=== PATIENT | female | born 1970 | race Caucasian/White ===

== ENCOUNTER → 2018-06-15 | Outpatient (CLI) | payer BC ==
[~2018-06-15] MED LIST: CLNZ.5T; CLNZ.5T PO; CLON0.5T3 PO; CTLP20T PO; DESV50TA PO; ESCI20TA2; PREN1TAB39 PO; VENL75CA PO
--- NOTE | 2018-06-15 20:49 | Diagnostic Imaging Report ---
INDICATION: Screening. EXAMINATION: Digital mammogram bilateral screening with 3-D tomosynthesis. The current study was also evaluated with a Computer Aided Detection (CAD) system. This study was compared to the prior exams of 09/30/2015 and 03/20/2013. At this time, there are no current complaints. FINDINGS: The fibroglandular tissue in both breasts is heterogeneously dense. This does limit the sensitivity of this exam. Overall, there does not appear to have been any significant change when compared to the prior study. No primary or secondary sign of malignancy is noted. 3D tomographic images fail to show any sign of malignancy. IMPRESSION: There is no radiographic evidence for malignancy. ACR BI-RADS Category 1: Negative. Result letter will be mailed to the patient. Note: At least 10% of breast cancer is not imaged by mammography. Dictated by: Dictated on workstation # [id number]
== END ==
LOC: RAD 08:02
PROVIDERS: ATTEND Nurse Practitioner
DX: Z12.31 Encounter for screening mammogram for malignant neoplasm of breast (principal)
CPT/HCPCS: 77067

== ENCOUNTER 2019-02-02 19:05 | Emergency (ER) | payer BC ==
[~2019-02-02] VITALS: Ht 165.1 cm; Wt 106.6 kg
--- OUTSIDE RECORDS SUMMARY | 2019-02-02 19:11 | XMS REPORT ---
Author Author Migration, Doctor Organization [facility] Address Unknown Phone Unavailable Care Team Providers Care Automotive Salesperson Name Role Phone Migration, Doctor Unavailable Unavailable PROBLEMS Type Condition ICD9-CM Code KON78-OX Code Onset Dates Condition Status SNOMED Code Problem Hypertension I10 Active 60679695 ALLERGIES No Information ENCOUNTERS Encounter Location Date Diagnosis [facility] [address] [address] Sep, Strep throat J02.0 ; Morbid obesity E66.01 ; Sore throat J02.9 and Fever R50.[address] [facility] [address] [address] Sep, Fluid level behind tympanic membrane of left ear H65.92 and Morbid obesity E66.[address] [facility] [address] [address] November, Acute upper respiratory infection, unspecified J06.[address] [facility] [address] [address] Jul, Pharyngitis due to other organism J02.8 [facility] [address] [id number] Jun, Dental examination Z01.20 [facility] [address] [id number] Jun, Dental examination Z01.20 and Dental caries K02.9 [facility] [address] [address] 17 Apr, 2016 Foot pain, left M79.672 [facility] [address] [address] 14 Apr, 2016 [facility] [address] [place] [address] 15 Mar, 2016 Pain of left heel M79.672 [facility] [id number] [place] [address] 18 Oct, 2015 Palpitation R00.2 ; Esophageal reflux K21.9 ; Hypertension I10 ; Murmur R01.1 and Heart palpitations R00.2 [facility] [address] [address] 04 Oct, 2015 Heart palpitations R00.2 and Hypertension I10 [facility] [address] [address] Feb, Gastroenteritis 558.9 and Allergic reaction caused by a drug 995.29 [facility] [id number] [place] [address] 14 Oct, 2014 [facility] [address] [address] Oct, [facility] [id number] [place] [address] May, [facility] [id number] [place] [address] May, [facility] [id number] [place] [address] Apr, [facility] [id number] [place] [address] Apr, [facility] [id number] [place] [address] Apr, [facility] [id number] [place] [address] Apr, [facility] [id number] [place] [address] Jan, [facility] [id number] [place] [address] Jan, [facility] [place] [facility] [address] [id number] [place] [address] Jan, [facility] [place] [facility] [address] [id number] [place] [address] Jan, [facility] [place] [facility] [address] [id number] [place] [address] Dec, [facility] [place] [facility] [address] [id number] [place] [address] Dec, [facility] [place] [facility] [address] [id number] [place] [address] Sep, [facility] [place] [facility] [address] [id number] [place] [address] Sep, [facility] [place] [facility] [address] [id number] [place] [address] Jul, [facility] [place] [facility] [address] [id number] [place] [address] Jul, [facility] [place] [facility] [address] [id number] [place] [address] Jul, [facility] [place] [facility] [address] [id number] [place] [address] Jul, [facility] [place] [facility] [address] [id number] [place] [address] May, [facility] [place] [facility] [address] [id number] [address] May, [facility] [place] [facility] [address] [id number] [place] [address] Sep, [facility] [place] [facility] [address] [id number] [place] [address] Apr, [facility] [place] [facility] [address] [id number] [place] [address] Feb, [facility] [place] [facility] [address] [id number] [address] Feb, [facility] [address] [id number] [address] Feb, [facility] [address] [address] Aug, [facility] [address] [address] Aug, [facility] [address] [address] Aug, [facility] [address] [address] Jul, [facility] [address] [address] Jul, [facility] [address] [address] Jun, [facility] [address] [address] Jun, [facility] [id number] [address] Jun, [facility] [address] [id number] [address] Jun, IMMUNIZATIONS No Known Immunizations SOCIAL HISTORY Never Assessed REASON FOR VISIT EMR-[facility] PLAN OF CARE VITAL SIGNS MEDICATIONS No Known Medications RESULTS No Results PROCEDURES No Known procedures INSTRUCTIONS MEDICATIONS ADMINISTERED No Known Medications MEDICAL (GENERAL) HISTORY Type Description Date Medical History seasonal allergies Medical History anxiety Medical History hx of depression Surgical History cholecystectomy Surgical History Surgical History right shoulder surgery Surgical History DnC Surgical History wisdom teeth Hospitalization History surgeries
--- OUTSIDE RECORDS SUMMARY | 2019-02-02 19:11 | XMS REPORT ---
Author Author Migration, Doctor Organization [facility] Address Unknown Phone Unavailable Care Team Providers Care Mid Level Game Designer Name Role Phone Migration, Doctor Unavailable Unavailable PROBLEMS Type Condition ICD9-CM Code [id number] Code Onset Dates Condition Status SNOMED Code Problem Hypertension I10 Active 34362372 ALLERGIES No Information ENCOUNTERS Encounter Location Date Diagnosis [facility] [address] [address] Sep, Strep throat J02.0 ; Morbid obesity E66.01 ; Sore throat J02.9 and Fever R50.9 [facility] [address] [address] Sep, Fluid level behind tympanic membrane of left ear H65.92 and Morbid obesity E66.01 [facility] [address] [address] November, Acute upper respiratory infection, unspecified J06.9 [facility] [address] [address] Jul, Pharyngitis due to other organism J02.8 [facility] [address] [id number] Jun, Dental examination Z01.20 [facility] [address] [id number] Jun, Dental examination Z01.20 and Dental caries K02.9 [facility] [address] [address] 17 Apr, 2016 Foot pain, left M79.672 [facility] [address] [address] 14 Apr, 2016 [facility] [address] [place] [address] 15 Mar, 2016 Pain of left heel M79.672 [facility] [id number] [place] [address] 18 Oct, 2015 Palpitation R00.2 ; Esophageal reflux K21.9 ; Hypertension I10 ; Murmur R01.1 and Heart palpitations R00.2 [facility] [address] [address] 04 Oct, 2015 Heart palpitations R00.2 and Hypertension I10 [facility] [address] [address] Feb, Gastroenteritis 558.9 and Allergic reaction caused by a drug 995.29 [facility] [id number] [place] [address] 14 Oct, 2014 [facility] [address] [address] Oct, [facility] [id number] [place] [address] May, [facility] [id number] [place] [address] May, [facility] [id number] [place] [address] Apr, [facility] [id number] [place] [address] Apr, [facility] [id number] [place] [address] Apr, [facility] [id number] [place] [address] Apr, [facility] [id number] [place] [address] Jan, [facility] [id number] [place] [address] Jan, [facility] [place] [facility] [address] [id number] [place] [address] Jan, [facility] [place] [facility] [address] [id number] [place] [address] Jan, [facility] [place] [facility] [address] [id number] [place] [address] Dec, [facility] [place] [facility] [address] [id number] [place] [address] Dec, [facility] [place] [facility] [address] [id number] [place] [address] Sep, [facility] [place] [facility] [address] [id number] [place] [address] Sep, [facility] [place] [facility] [address] [id number] [place] [address] Jul, [facility] [place] [facility] [address] [id number] [place] [address] Jul, [facility] [place] [facility] [address] [id number] [place] [address] Jul, [facility] [place] [facility] [address] [id number] [place] [address] Jul, [facility] [place] [facility] [address] [id number] [place] [address] May, [facility] [place] [facility] [address] [id number] [address] May, [facility] [place] [facility] [address] [id number] [place] [address] Sep, [facility] [place] [facility] [address] [id number] [place] [address] Apr, [facility] [place] [facility] [address] [id number] [place] [address] Feb, [facility] [place] [facility] [address] [id number] [address] Feb, [facility] [address] [id number] [address] Feb, [facility] [address] [address] Aug, [facility] [address] [id number] [address] Aug, [facility] [address] [address] Aug, [facility] [address] [address] Jul, [facility] [address] [address] Jul, [facility] [address] [address] Jun, [facility] [address] [id number] [address] Jun, [facility] [address] [id number] [address] Jun, [facility] [address] [id number] [address] Jun, IMMUNIZATIONS No Known Immunizations SOCIAL HISTORY Never Assessed REASON FOR VISIT [place] [place] VITAL SIGNS MEDICATIONS Medication Instructions Dosage Frequency Start Date End Date Duration Status PredniSONE 10 mg 1 Tablet by Oral route 2 times per day for 5 days Take at 8 am and noon. Sep, Active Fluoxetine 20 mg take 1 capsule (20 mg) by oral route once daily Dec, Active Klonopin 0.5 mg take 1 tablet (0.5 mg) by oral route 2 times per dayPRN Feb, Active Vistaril 50 mg take 1-2 capsule by Oral route 4 times per day Jan, Active Amoxicillin 500 mg take 1 capsule (500 mg) by oral route 3 times per day for 30 days for 10 days Jul, Active PredniSONE 20 mg take 1 tablet (20 mg) by oral route 2 times per day for 5 day(s) Feb, Active [facility]ita Allergy 180 mg take 1 tablet (180 mg) by oral route once daily Sep, Active Azithromycin 250 mg 2 Tablet by Oral route 1 time per day for 6 days take with food. Sep, Active RESULTS No Results PROCEDURES No Known procedures INSTRUCTIONS MEDICATIONS ADMINISTERED No Known Medications MEDICAL (GENERAL) HISTORY Type Description Date Medical History seasonal allergies Medical History anxiety Medical History hx of depression Surgical History cholecystectomy Surgical History Surgical History right shoulder surgery Surgical History DnC Surgical History wisdom teeth Hospitalization History surgeries
--- OUTSIDE RECORDS SUMMARY | 2019-02-02 19:11 | XMS REPORT ---
Author Author ANTHONY BECK [facility] Address Unknown Care Team Providers Care Process Control Manager Name Role Phone ANTHONY BECK Unavailable PROBLEMS Type Condition ICD9-CM Code SHN58-NN Code Onset Dates Condition Status SNOMED Code Problem Fever, unspecified 780.60 Active 791408020 Problem Enthesopathy of unspecified site 726.90 Active 94972719 Problem Unspecified hypertrophic and atrophic condition of skin 701.9 Active 513456021 Problem Family history of ischemic heart disease V17.3 Active 622576152 Problem Elevated blood pressure reading without diagnosis of hypertension 796.2 Active 704370525 Problem Urinary frequency 788.41 Active 665953492 Problem Hypertension I10 Active 69048109 Problem Viral warts, unspecified 078.10 Active 93866661 Problem Acute upper respiratory infections of unspecified site 465.9 Active 50090348 Problem Influenza with other respiratory manifestations 487.1 Active 0732981 Problem Acute sinusitis, unspecified 461.9 Active 86606258 Problem Acute pharyngitis 462 Active 032135962 ALLERGIES Substance Reaction Event Type Date Status N.K.D.A. Unknown Non Drug Allergy Jun, Unknown SOCIAL HISTORY No smoking Hx information available PLAN OF CARE Activity Details Follow Up prn Reason:cap VITAL SIGNS Height 65 in 2016-07-21 Blood pressure systolic 150 mmHg 2016-07-21 Blood pressure diastolic 90 mmHg 2016-07-21 MEDICATIONS Medication Instructions Dosage Frequency Start Date End Date Duration Status Klonopin 0.5 mg take 1 tablet (0.5 mg) by oral route 2 times per dayPRN Feb, Active Diclofenac Sodium 75 MG Orally Twice a day 1 tablet with food or milk 12h Apr, 14 Aug, 2016 30 day(s) Active Effexor XR 112.5 Orally Once a day 1 capsule with food 24h Active RESULTS No Results PROCEDURES Procedure Date Ordered Related Diagnosis Body Site LTD ORAL EVALUATION - PROBLEM FOCUS Jul 21, 2016 IMMUNIZATIONS No Known Immunizations
--- OUTSIDE RECORDS SUMMARY | 2019-02-02 19:11 | XMS REPORT ---
Author Author SUREKHA BOX Organization [facility] Address [address] [place] [address] Care Team Providers Care Die Cut Operator Name Role Phone SUREKHA BOX Unavailable PROBLEMS Type Condition ICD9-CM Code KLP34-SW Code Onset Dates Condition Status SNOMED Code Problem Fever, unspecified 780.60 Active 853216548 Problem Enthesopathy of unspecified site 726.90 Active 98479361 Problem Unspecified hypertrophic and atrophic condition of skin 701.9 Active 090256464 Problem Family history of ischemic heart disease V17.3 Active 487588889 Problem Elevated blood pressure reading without diagnosis of hypertension 796.2 Active 749786507 Problem Urinary frequency 788.41 Active 380682605 Problem Hypertension I10 Active 94968088 Problem Viral warts, unspecified 078.10 Active 47758357 Problem Acute upper respiratory infections of unspecified site 465.9 Active 21487550 Problem Influenza with other respiratory manifestations 487.1 Active 0106322 Problem Acute sinusitis, unspecified 461.9 Active 71794177 Problem Acute pharyngitis 462 Active 168530309 ALLERGIES Substance Reaction Event Type Date Status N.K.D.A. Unknown Non Drug Allergy Jul, Unknown SOCIAL HISTORY No smoking Hx information available PLAN OF CARE VITAL SIGNS Height 65 in 2016-08-05 Weight 293.4 lbs 2016-08-05 Temperature 97.7 degrees Fahrenheit 2016-08-05 Heart Rate 88 bpm 2016-08-05 Respiratory Rate 20 2016-08-05 BMI 48.82 kg/m2 2016-08-05 Blood pressure systolic 170 mmHg 2016-08-05 Blood pressure diastolic 92 mmHg 2016-08-05 MEDICATIONS Medication Instructions Dosage Frequency Start Date End Date Duration Status Amoxicillin 500 MG Orally 3 times a day 1 capsule 8h Jul, Jul, 10 day(s) Active Klonopin 0.5 mg take 1 tablet (0.5 mg) by oral route 2 times per dayPRN Feb, Active Effexor XR 112.5 Orally Once a day 1 capsule with food 24h Active RESULTS No Results PROCEDURES Procedure Date Ordered Related Diagnosis Body Site Office Visit, Est Pt., Level 3 Aug 05, 2016 IMMUNIZATIONS No Known Immunizations
--- OUTSIDE RECORDS SUMMARY | 2019-02-02 19:11 | XMS REPORT ---
Author Author SUREKHA BOX Organization [facility] Address [address] [place] [address] Care Team Providers Care Center Director Lead Teacher Name Role Phone SUREKHA BOX Unavailable PROBLEMS Type Condition ICD9-CM Code XWA78-WG Code Onset Dates Condition Status SNOMED Code Problem Hypertension I10 Active 41728572 ALLERGIES No Information ENCOUNTERS Encounter Location Date Diagnosis [facility] [address] [address] 14 Sep, 2018 Strep throat J02.0 ; Morbid obesity E66.01 ; Sore throat J02.9 and Fever R50.9 [facility] [address] [address] Sep, Fluid level behind tympanic membrane of left ear H65.92 and Morbid obesity E66.01 [facility] [address] [address] November, Acute upper respiratory infection, unspecified J06.9 [facility] [address] [place] [address] Jul, Pharyngitis due to other organism J02.8 [facility] [id number] [place] [id number] Jun, Dental examination Z01.20 [facility] [id number] [place] [id number] Jun, Dental examination Z01.20 and Dental caries K02.9 [facility] [address] [address] 17 Apr, 2016 Foot pain, left M79.672 [facility] [address] [address] 14 Apr, 2016 [facility] [address] [place] [address] 15 Mar, 2016 Pain of left heel M79.672 [facility] [id number] [place] [address] 18 Oct, 2015 Palpitation R00.2 ; Esophageal reflux K21.9 ; Hypertension I10 ; Murmur R01.1 and Heart palpitations R00.2 [facility] [id number] [place] [address] 04 Oct, 2015 Heart palpitations R00.2 and Hypertension I10 [facility] [address] [address] Feb, Gastroenteritis 558.9 and Allergic reaction caused by a drug 995.29 [facility] [id number] [place] [address] Oct, [facility] [id number] [place] [address] Oct, [facility] [id number] [place] [address] May, [facility] [id number] [place] [address] May, [facility] [id number] [place] [address] Apr, [facility] [id number] [place] [address] Apr, [facility] [id number] [place] [address] Apr, [facility] [id number] [place] [address] Apr, [facility] [id number] [place] [address] Jan, [facility] [id number] [place] [address] Jan, [facility] [address] [id number] [place] [address] Jan, [facility] [place] [facility] [address] [id number] [place] [address] Jan, [facility] [address] [id number] [place] [address] Dec, [facility] [place] [facility] [address] [id number] [place] [address] Dec, [facility] [address] [id number] [place] [address] Sep, [facility] [place] [facility] [address] [id number] [place] [address] Sep, [facility] [place] [facility] [address] [id number] [place] [address] Jul, [facility] [address] [id number] [place] [address] Jul, [facility] [place] [facility] [address] [id number] [place] [address] Jul, [facility] [address] [id number] [place] [address] Jul, [facility] [place] [facility] [address] [id number] [place] [address] May, [facility] [place] [facility] [address] [id number] [place] [address] May, [facility] [place] [facility] [address] [id number] [place] [address] Sep, [facility] [place] [facility] [address] [id number] [place] [address] Apr, [facility] [place] [facility] [address] [id number] [place] [address] Feb, [facility] [address] [address] Feb, [facility] [address], [place] [address] Feb, [facility] [address], [place] [address] Aug, [facility] [address], [place] [address] Aug, [facility] [address], [place] [address] Aug, [facility] [address] [place] [address] Jul, [facility] [address], [place] [address] Jul, [facility] [address], [place] [address] Jun, [facility] [address], [place] [address] Jun, [facility] [address], [place] [address] Jun, [facility] [address], [place] [address] Jun, IMMUNIZATIONS No Known Immunizations SOCIAL HISTORY Never Assessed REASON FOR VISIT PLAN OF CARE VITAL SIGNS MEDICATIONS No [...]
--- OUTSIDE RECORDS SUMMARY | 2019-02-02 19:11 | XMS REPORT ---
Author SUREKHA Ham Organization [employer] Address Unknown Phone Unavailable Care Team Providers Care Web Content Editor Name Role Phone SUREKHA BOX CP Unavailable Allergies, Adverse Reactions, Alerts Substance Reaction Event Type N.K.D.A. Info Not Available Non Drug Allergy Problems Problem Type Condition Code Onset Dates Condition Status Problem Viral warts, unspecified 078.10 Active Problem Elevated blood pressure reading without diagnosis of hypertension 796.2 Active Problem Acute upper respiratory infections of unspecified site 465.9 Active Problem Acute sinusitis, unspecified 461.9 Active Problem Unspecified hypertrophic and atrophic condition of skin 701.9 Active Problem Enthesopathy of unspecified site 726.90 Active Problem Acute pharyngitis 462 Active Problem Hypertension I10 Active Problem Influenza with other respiratory manifestations 487.1 Active Problem Fever, unspecified 780.60 Active Problem Family history of ischemic heart disease V17.3 Active Problem Urinary frequency 788.41 Active Medications Medication Code System Code Instructions Start Date End Date Status Dosage Effexor XR [facility] [address]-25 112.5 Orally Once a day 1 capsule with food Klonopin [facility] [address]-45 0.5 mg Mar 11, 2012 take 1 tablet (0.5 mg) by oral route 2 times per dayPRN Results No Known Results Summary Purpose [employer] Submission
--- OUTSIDE RECORDS SUMMARY | 2019-02-02 19:11 | XMS REPORT ---
Author Author MIRZAJOSSUE Gutierrez Organization [facility] Address [address] [place] [address] Care Team Providers Care Ap Processor Name Role Phone JOSSUE MIRZA Unavailable PROBLEMS Type Condition ICD9-CM Code [id number] Code Onset Dates Condition Status SNOMED Code Problem Acute upper respiratory infections of unspecified site 465.9 Active 89055162 Problem Fever, unspecified 780.60 Active 913100157 Problem Elevated blood pressure reading without diagnosis of hypertension 796.2 Active 496583705 Assessment Pain of left heel M79.672 Mar, Active 1192398 Problem Acute sinusitis, unspecified 461.9 Active 77280328 Problem Unspecified hypertrophic and atrophic condition of skin 701.9 Active 085567167 Problem Viral warts, unspecified 078.10 Active 72134507 Problem Hypertension I10 Active 13745086 Problem Enthesopathy of unspecified site 726.90 Active 00043872 Problem Urinary frequency 788.41 Active 978003702 Problem Influenza with other respiratory manifestations 487.1 Active 0958154 Problem Acute pharyngitis 462 Active 432231375 Problem Family history of ischemic heart disease V17.3 Active 059466648 ALLERGIES Substance Reaction Event Type Date Status N.K.D.A. Unknown Non Drug Allergy Mar, Unknown SOCIAL HISTORY No smoking Hx information available PLAN OF CARE VITAL SIGNS Height 65 in 2016-04-09 Weight 302.1 lbs 2016-04-09 Heart Rate 90 bpm 2016-04-09 Respiratory Rate 20 2016-04-09 BMI 50.27 kg/m2 2016-04-09 Blood pressure systolic 154 mmHg 2016-04-09 Blood pressure diastolic 84 mmHg 2016-04-09 MEDICATIONS Medication Instructions Dosage Frequency Start Date End Date Duration Status Effexor XR 112.5 Orally Once a day 1 capsule with food 24h Active Flonase Allergy Relief 50 MCG/ACT Nasally Once a day 1 spray in each nostril 24h Active Klonopin 0.5 mg take 1 tablet (0.5 mg) by oral route 2 times per dayPRN Feb, Active RESULTS Name Result Date Reference Range Xray : Foot, Left 3 views (IN HOUSE) 2016-04-09 PROCEDURES Procedure Date Ordered Related Diagnosis Body Site X-RAY EXAM OF FOOT Apr 09, 2016 Office Visit, Est Pt., Level 3 Apr 09, 2016 IMMUNIZATIONS No Known Immunizations
--- OUTSIDE RECORDS SUMMARY | 2019-02-02 19:11 | XMS REPORT ---
Author Author ALENA HAMM Organization [facility] Address [address] [place] [address] Care Team Providers Care Ragman Name Role Phone ALENA HAMM Unavailable PROBLEMS Type Condition ICD9-CM Code [id number] Code Onset Dates Condition Status SNOMED Code Problem Fever, unspecified 780.60 Active 327950491 Problem Enthesopathy of unspecified site 726.90 Active 28158324 Problem Unspecified hypertrophic and atrophic condition of skin 701.9 Active 762059376 Problem Family history of ischemic heart disease V17.3 Active 599635965 Problem Elevated blood pressure reading without diagnosis of hypertension 796.2 Active 155237952 Problem Urinary frequency 788.41 Active 129090777 Problem Hypertension I10 Active 61438978 Problem Viral warts, unspecified 078.10 Active 72596661 Problem Acute upper respiratory infections of unspecified site 465.9 Active 54355002 Problem Influenza with other respiratory manifestations 487.1 Active 2420052 Problem Acute sinusitis, unspecified 461.9 Active 51588285 Problem Acute pharyngitis 462 Active 494097694 ALLERGIES No Known Allergies SOCIAL HISTORY Never Assessed PLAN OF CARE Activity Details Follow Up prn Reason: VITAL SIGNS Height 65 in 2016-12-13 Weight 294.6 lbs 2016-12-13 Temperature 98.4 degrees Fahrenheit 2016-12-13 Heart Rate 84 bpm 2016-12-13 Respiratory Rate 22 2016-12-13 BMI 49.02 kg/m2 2016-12-13 Blood pressure systolic 160 mmHg 2016-12-13 Blood pressure diastolic 88 mmHg 2016-12-13 MEDICATIONS Medication Instructions Dosage Frequency Start Date End Date Duration Status Azithromycin 250 MG Orally Once a day 2 tablets on the first day, then 1 tablet daily for 4 days 24h November, November, 5 day(s) Active Klonopin 0.5 mg take 1 tablet (0.5 mg) by oral route 2 times per dayPRN Feb, Active Effexor XR 112.5 Orally Once a day 1 capsule with food 24h Active RESULTS No Results PROCEDURES No Known procedures IMMUNIZATIONS No Known Immunizations MEDICAL (GENERAL) HISTORY Type Description Date Medical History seasonal allergies Medical History anxiety Medical History hx of depression Surgical History cholecystectomy Surgical History Surgical History right shoulder surgery Surgical History DnC Surgical History wisdom teeth Hospitalization History surgeries
--- OUTSIDE RECORDS SUMMARY | 2019-02-02 19:12 | XMS REPORT ---
Author SUREKHA Ham [facility] e[employer] Address Unknown Phone Unavailable Care Team Providers Care Flour Inspector Name Role Phone SUREKHA BOX CP Unavailable Allergies, Adverse Reactions, Alerts Substance Reaction Event Type N.K.D.A. Info Not Available Non Drug Allergy Problems Problem Type Condition Code Onset Dates Condition Status Problem Viral warts, unspecified 078.10 Active Problem Elevated blood pressure reading without diagnosis of hypertension 796.2 Active Problem Acute upper respiratory infections of unspecified site 465.9 Active Problem Enthesopathy of unspecified site 726.90 Active Problem Acute pharyngitis 462 Active Problem Hypertension I10 Active Problem Influenza with other respiratory manifestations 487.1 Active Problem Fever, unspecified 780.60 Active Problem Family history of ischemic heart disease V17.3 Active Problem Urinary frequency 788.41 Active Assessment Heart palpitations R00.2 Active Assessment Esophageal reflux K21.9 Active Assessment Palpitation R00.2 Active Assessment Murmur R01.1 Active Problem Acute sinusitis, unspecified 461.9 Active Assessment Hypertension I10 Active Problem Unspecified hypertrophic and atrophic condition of skin 701.9 Active Medications Medication Code System Code Instructions Start Date End Date Status Dosage Flonase Allergy Relief [facility] [address]-46 50 MCG/ACT Nasally Once a day 1 spray in each nostril Omeprazole [facility] [address]-18 20 mg Orally Once a day November 11, 2015 1 capsule Effexor XR [facility] [address]-21 75 MG Orally Once a day 1 capsule with food Klonopin [facility] [address]-35 0.5 mg Mar 11, 2012 take 1 tablet (0.5 mg) by oral route 2 times per dayPRN Procedures Procedure Coding System Code Date ASSAY THYROID STIM HORMONE CPT-4 10434 November 11, 2015 COMPLETE CBC W/AUTO DIFF WBC CPT-4 68902 November 11, 2015 Office Visit, Est Pt., Level 3 CPT-4 46786 November 11, 2015 ELECTROCARDIOGRAM, TRACING CPT-4 68442 November 11, 2015 LIPID PANEL CPT-4 80615 November 11, 2015 C-REACTIVE PROTEIN, HS CPT-4 70935 November 11, 2015 CHEST X-RAY CPT-4 46033 November 11, 2015 COMPREHEN METABOLIC PANEL CPT-4 44771 November 11, 2015 Vital Signs Date/Time: November 11, 2015 Temperature 98.1 F Weight 296.3 lbs Height 65 in BMI 49.30 Index Blood Pressure Diastolic 88 mmHg Blood Pressure Systolic 168 mmHg Cardiac Monitoring Heart Rate 90 bpm Results Name Result Date Reference Range Unit Abnormality Flag TSH ----TSH 2.430 [id number] 0.450-4.500 uIU/mL CRP, CARDIAC ----C-Reactive Protein, Cardiac 9.72 [id number] 0.00-3.00 mg/L H ROUTINE VENIPUNCTURE EKG, TRACING (IN-HOUSE) LIPID PANEL ----LDL Cholesterol Calc 84 [id number] 0-99 mg/dL ----VLDL Cholesterol Charles 23 16957770 5-40 mg/dL ----HDL Cholesterol 56 19125878 >39 mg/dL ----Triglycerides 117 70386897 0-149 mg/dL ----Cholesterol, Total 163 [id number] 100-199 mg/dL CMP ----Creatinine, Serum 0.56 [id number] 0.57-1.00 mg/dL L ----BUN 9 59891168 6-24 mg/dL ----eGFR If Africn Am 130 [id number] >59 mL/min/1.73 ----eGFR If NonAfricn Am 113 [id number] >59 mL/min/1.73 ----Sodium, Serum 140 23958307 134-144 mmol/L ----BUN/Creatinine Ratio 16 [id number] 9-23 ----Chloride, Serum 100 96298196 97-108 mmol/L ----Potassium, Serum 4.1 59638129 3.5-5.2 mmol/L ----Carbon Dioxide, Total 22 58595457 18-29 mmol/L ----Protein, Total, Serum 7.1 58242202 6.0-8.5 g/dL ----Calcium, Serum 9.1 61916975 8.7-10.2 mg/dL ----Globulin, Total 2.7 [id number] 1.5-4.5 g/dL ----Albumin, Serum 4.4 20151111 3.5-5.5 g/dL ----Bilirubin, Total 0.5 20151111 0.0-1.2 mg/dL ----Glucose, Serum 92 20151111 65-99 mg/dL ----A/G Ratio 1.6 20151111 1.1-2.5 ----ALT (SGPT) 15 20151111 0-32 IU/L ----Alkaline Phosphatase, S 87 20151111 39-117 IU/L ----AST (SGOT) 10 20151111 0-40 IU/L Summary Purpose eClinicalWorks Submission
--- OUTSIDE RECORDS SUMMARY | 2019-02-02 19:12 | XMS REPORT ---
Author SUREKHA Ham Organization [employer] Address Unknown Phone Unavailable Care Team Providers Care Crane Rigger Name Role Phone SUREKHA BOX CP Unavailable [...] Active Problem Urinary frequency 788.41 Active Assessment Foot pain, left M79.672 Active Problem Acute sinusitis, unspecified 461.9 Active Problem Unspecified hypertrophic and atrophic condition of skin 701.9 Active Medications Medication Code System Code Instructions Start Date End Date Status Dosage Effexor XR [facility] [address]-06 112.5 Orally Once a day 1 capsule with food Klonopin [facility] [address]-62 0.5 mg Mar 11, 2012 take 1 tablet (0.5 mg) by oral route 2 times per dayPRN Diclofenac Sodium [facility] [address]-42 75 MG Orally Twice a day May 11, 2016 Sep 08, 2016 1 tablet with food or milk Procedures Procedure Coding System Code Date Office Visit, Est Pt., Level 3 CPT-4 26361 May 11, 2016 Vital Signs Date/Time: May 11, 2016 Cardiac Monitoring Heart Rate 82 bpm Weight 301.9 lbs Height 65 in BMI 50.23 Index Blood Pressure Diastolic 76 mmHg Blood Pressure Systolic 138 mmHg Results No Known Results Summary Purpose [employer]ClinicalWorks Submission
--- OUTSIDE RECORDS SUMMARY | 2019-02-02 19:12 | XMS REPORT ---
Author Author ANTHONY BECK [facility] Address Unknown Care Team Providers Care Child Development Consultant Name Role Phone ANTHONY BECK Unavailable PROBLEMS Type Condition ICD9-CM Code [id number] Code Onset Dates Condition Status SNOMED Code Problem Fever, unspecified 780.60 Active 439996422 Problem Enthesopathy of unspecified site 726.90 Active 58943329 Problem Unspecified hypertrophic and atrophic condition of skin 701.9 Active 412643567 Problem Family history of ischemic heart disease V17.3 Active 246793618 Problem Elevated blood pressure reading without diagnosis of hypertension 796.2 Active 771348980 Problem Urinary frequency 788.41 Active 423791175 Problem Hypertension I10 Active 02166190 Problem Viral warts, unspecified 078.10 Active 96516218 Problem Acute upper respiratory infections of unspecified site 465.9 Active 78794492 Problem Influenza with other respiratory manifestations 487.1 Active 3572123 Problem Acute sinusitis, unspecified 461.9 Active 88286187 Problem Acute pharyngitis 462 Active 001631566 ALLERGIES Substance Reaction Event Type Date Status N.K.D.A. Unknown Non Drug Allergy Jun, Unknown SOCIAL HISTORY No smoking Hx information available PLAN OF CARE Activity Details Follow Up prn Reason:hygiene VITAL SIGNS Blood pressure systolic 139 mmHg 2016-07-16 Blood pressure diastolic 83 mmHg 2016-07-16 MEDICATIONS Medication Instructions Dosage Frequency Start Date End Date Duration Status Effexor XR 112.5 Orally Once a day 1 capsule with food 24h Active Klonopin 0.5 mg take 1 tablet (0.5 mg) by oral route 2 times per dayPRN Feb, Active Diclofenac Sodium 75 MG Orally Twice a day 1 tablet with food or milk 12h Apr, Aug, 30 day(s) Active RESULTS No Results PROCEDURES Procedure Date Ordered Related Diagnosis Body Site LTD ORAL EVALUATION - PROBLEM FOCUS Jul 16, 2016 INTRAORL-PERIAPICAL 1 FILM 66502 Jul 16, 2016 EXTRAC ERUPTED TOOTH/EXPOSED ROOT Jul 16, 2016 BITEWING - SINGLE FILM Jul 16, 2016 IMMUNIZATIONS No Known Immunizations
--- OUTSIDE RECORDS SUMMARY | 2019-02-02 19:12 | XMS REPORT | Continuity of Care Document ---
Author Organization Unknown Address Unknown Allergies Active Description Code Type Severity Reaction Onset Reported/Identified Relationship to Patient Clinical Status Yes NKANo Known Allergies NKA Miscellaneous Allergy Unknown N/A 06/22/2006 Yes No Known Drug Allergies [id number] Drug Allergy Mild N/A 11/27/2008 Medications There is no data. Problems Date Dx Coded Attending Type Code Diagnosis Diagnosed By 07/20/2008 463 TONSILLITIS ACUTE 07/20/2008 RYLEY HAYES APRN A 463 TONSILLITIS ACUTE 07/20/2008 DOMINIQUE OSBORN APRN 463 TONSILLITIS ACUTE 07/20/2008 RYLEY HAYES APRN A 463 TONSILLITIS ACUTE 07/20/2008 EMMA ASH APRN 463 TONSILLITIS ACUTE 07/20/2008 SUREKHA BOX APRN 463 TONSILLITIS ACUTE 07/20/2008 CATY MARQUEZ DO 463 TONSILLITIS ACUTE 11/19/2008 625.3 DYSMENORRHEA 11/19/2008 RYLEY HAYES APRN A 625.3 DYSMENORRHEA 11/19/2008 DOMINIQUE OSBORN APRN 625.3 DYSMENORRHEA 11/19/2008 RYLEY HAYES APRN A 625.3 DYSMENORRHEA 11/19/2008 EMMA ASH APRN 625.3 DYSMENORRHEA 11/19/2008 SUREKHA BOX APRN 625.3 DYSMENORRHEA 11/19/2008 CATY MARQUEZ DO 625.3 DYSMENORRHEA 07/11/2009 V65.11 pediatric pre- visit for expectant mother 07/11/2009 RYLEY HAYES APRN A V65.11 pediatric pre- visit for expectant mother 07/11/2009 DOMINIQUE OSBORN APRN V65.11 pediatric pre- visit for expectant mother 07/11/2009 RYLEY HAYES APRN A V65.11 pediatric pre- visit for expectant mother 07/11/2009 EMMA ASH APRN V65.11 pediatric pre- visit for expectant mother 07/11/2009 SUREKHA BOX APRN V65.11 pediatric pre- visit for expectant mother 07/11/2009 CATY MARQUEZ DO V65.11 pediatric pre- visit for expectant mother 12/11/2009 300.00 AN ANXIETY UNSPEC 12/11/2009 311 MO DEPRESS NOS 12/11/2009 SHREYA HAYES APRNIDI A 300.00 AN ANXIETY UNSPEC 12/11/2009 SHREYA HAYES APRNIDI A 311 MO DEPRESS NOS 12/11/2009 DOMINIQUE OSBORN APRN S 300.00 AN ANXIETY UNSPEC 12/11/2009 DOMINIQUE OSBORN APRN S 311 MO DEPRESS NOS 12/11/2009 RYLEY HAYES APRN A 300.00 AN ANXIETY UNSPEC 12/11/2009 RYLEY HAYES APRN A 311 MO DEPRESS NOS 12/11/2009 EMMA ASH APRN R 300.00 AN ANXIETY UNSPEC 12/11/2009 EMMA ASH APRN R 311 MO DEPRESS NOS 12/11/2009 SUREKHA BOX APRN 300.00 AN ANXIETY UNSPEC 12/11/2009 SUREKHA BOX APRN 311 MO DEPRESS NOS 12/11/2009 CATY MARQUEZ DO 300.00 AN ANXIETY UNSPEC 12/11/2009 CATY MARQUEZ DO 311 MO DEPRESS NOS 03/15/2010 719.47 PAIN IN JOINT INVOLVING ANKLE AND FOOT 03/15/2010 845.10 SPRAIN/STRAIN FOOT 03/15/2010 RYLEY HAYES APRN A 719.47 PAIN IN JOINT INVOLVING ANKLE AND FOOT 03/15/2010 RYLEY HAYES APRN A 845.10 SPRAIN/STRAIN FOOT 03/15/2010 DOMINIQUE OSBORN APRN S 719.47 PAIN IN JOINT INVOLVING ANKLE AND FOOT 03/15/2010 DOMINIQUE OSBORN APRN S 845.10 SPRAIN/STRAIN FOOT 03/15/2010 RYLEY HAYES APRN A 719.47 PAIN IN JOINT INVOLVING ANKLE AND FOOT 03/15/2010 RYLEY HAYES APRN A 845.10 SPRAIN/STRAIN FOOT 03/15/2010 EMMA ASH APRN R 719.47 PAIN IN JOINT INVOLVING ANKLE AND FOOT 03/15/2010 EMMA ASH APRN R 845.10 SPRAIN/STRAIN FOOT 03/15/2010 SUREKHA BOX APRN 719.47 PAIN IN JOINT INVOLVING ANKLE AND FOOT 03/15/2010 SUREKHA BOX APRN 845.10 SPRAIN/STRAIN FOOT 03/15/2010 CATY MARQUEZ DO 719.47 PAIN IN JOINT INVOLVING ANKLE AND FOOT 03/15/2010 CATY MARQUEZ DO 845.10 SPRAIN/STRAIN FOOT 04/24/2010 462 PHARYNGITIS ACUTE 04/24/2010 785.6 LYMPH NODES ENLARGEMENT 04/24/2010 SHREYA HAYES APRNIDI A 462 PHARYNGITIS ACUTE 04/24/2010 SHREYA HAYES APRNIDI A 785.6 LYMPH NODES ENLARGEMENT 04/24/2010 DOMINIQUE OSBORN APRN S 462 PHARYNGITIS ACUTE 04/24/2010 DOMINIQUE OSBORN APRN S 785.6 LYMPH NODES ENLARGEMENT 04/24/2010 SHREYA HAYES APRNIDI A 462 PHARYNGITIS ACUTE 04/24/2010 SHREYA HAYES APRNIDI A 785.6 LYMPH NODES ENLARGEMENT 04/24/2010 EMMA ASH APRN R 462 PHARYNGITIS ACUTE 04/24/2010 EMMA ASH APRN R 785.6 LYMPH NODES ENLARGEMENT 04/24/2010 SUREKHA BOX APRN 462 PHARYNGITIS ACUTE 04/24/2010 SUREKHA BOX APRN 785.6 LYMPH NODES ENLARGEMENT 04/24/2010 CATY MARQUEZ DO K 462 PHARYNGITIS ACUTE 04/24/2010 CATY MARQUEZ DO 785.6 LYMPH NODES ENLARGEMENT 08/07/2010 Ot 640.03 03/27/2011 Ot 300.01 03/31/2011 799.22 Irritibility 03/31/2011 RYLEY HAYES APRN A 799.22 Irritibility 03/31/2011 YO OSBORN APRNA S 799.22 Irritibility 03/31/2011 RYLEY HAYES APRN A 799.22 Irritibility 03/31/2011 EMMA ASH APRN R 799.22 Irritibility 03/31/2011 SUREKHA BOX APRN 799.22 Irritibility 03/31/2011 CATY MARQUEZ DO 799.22 Irritibility 07/21/2011 599.0 URINARY TRACT INFECTION 07/21/2011 ABIGAILPARVEZ STEWART, RYLEY A 599.0 URINARY TRACT INFECTION 07/21/2011 DOMINIQUE OSBORN APRN S 599.0 URINARY TRACT INFECTION 07/21/2011 ABIGAILRYLEY HANNON APRN A 599.0 URINARY TRACT INFECTION 07/21/2011 EMMA ASH APRN R 599.0 URINARY TRACT INFECTION 07/21/2011 SUREKHA BOX APRN 599.0 URINARY TRACT INFECTION 07/21/2011 CATY MARQUEZ DO 599.0 URINARY TRACT INFECTION 08/10/2011 465.9 Upper Respiratory Infection 08/10/2011 RYLEY HAYES APRN A 465.9 Upper Respiratory Infection 08/10/2011 DOMINIQUE OSBORN APRN S 465.9 Upper Respiratory Infection 08/10/2011 RYLEY HAYES APRN A 465.9 Upper Respiratory Infection 08/10/2011 EMMA AHS APRN R 465.9 Upper Respiratory Infection 08/10/2011 SUREKHA BOX APRN 465.9 Upper Respiratory Infection 08/10/2011 CATY MARQUEZ DO K 465.9 Upper Respiratory Infection 08/26/2011 462 Pharyngitis Acute 08/26/2011 RYLEY HAYES APRN A 462 Pharyngitis Acute 08/26/2011 DOMINIQUE OSBORN APRN S 462 Pharyngitis Acute 08/26/2011 SHREYA HAYES APRNIDI A 462 Pharyngitis Acute 08/26/2011 EMMA ASH APRN R 462 Pharyngitis Acute 08/26/2011 SUREKHA BOX APRN 462 Pharyngitis Acute 08/26/2011 CATY MARQUEZ DO 462 Pharyngitis Acute 08/31/2011 V17.3 FAMILY HISTORY OF ISCHEMIC HEART DISEASE 08/31/2011 RYLEY HAYES APRN A V17.3 FAMILY HISTORY OF ISCHEMIC HEART DISEASE 08/31/2011 DOMINIQUE OSBORN APRN S V17.3 FAMILY HISTORY OF ISCHEMIC HEART DISEASE 08/31/2011 RYLEY HAYES APRN A V17.3 FAMILY HISTORY OF ISCHEMIC HEART DISEASE 08/31/2011 EMMA ASH APRN R V17.3 FAMILY HISTORY OF ISCHEMIC HEART DISEASE 08/31/2011 SUREKHA BOX APRN V17.3 FAMILY HISTORY OF ISCHEMIC HEART DISEASE 08/31/2011 CATY MARQUEZ DO V17.3 FAMILY HISTORY OF ISCHEMIC HEART DISEASE 02/24/2012 726.90 Tendonitis Non- spec 02/24/2012 RYLEY HAYES APRN A 726.90 Tendonitis Non-spec 02/24/2012 DOMINIQUE OSBORN APRN S 726.90 Tendonitis Non-spec 02/24/2012 RYLEY HAYES APRN A 726.90 Tendonitis Non-spec 02/24/2012 EMMA ASH APRN R 726.90 Tendonitis Non-spec 02/24/2012 SUREKHA BOX APRN 726.90 Tendonitis Non-spec 02/24/2012 CATY MARQUEZ DO K 726.90 Tendonitis Non-spec 03/11/2012 078.10 Warts 03/11/2012 701.9 Skin Tag 03/11/2012 RYLEY HAYES APRN A 078.10 Warts 03/11/2012 RYLEY HAYES APRN A 701.9 Skin Tag 03/11/2012 YO OSBORN APRNA S 078.10 Warts 03/11/2012 YO OSBORN APRNA S 701.9 Skin Tag 03/11/2012 RYLEY HAYES APRN A 078.10 Warts 03/11/2012 RYLEY HAYES APRN A 701.9 Skin Tag 03/11/2012 EMMA ASH APRN R 078.10 Warts 03/11/2012 EMMA ASH APRN R 701.9 Skin Tag 03/11/2012 SUREKHA BOX APRN 078.10 Warts 03/11/2012 SUREKHA BOX APRN 701.9 Skin Tag 03/11/2012 CATY MARQUEZ DO K 078.10 Warts 03/11/2012 CATY MARQUEZ DO K 701.9 Skin Tag 10/12/2012 461.9 SINUSITIS ACUTE 10/12/2012 RYLEY HAYES APRN A 461.9 SINUSITIS ACUTE 10/12/2012 DAVE OSBORN APRNNDA S 461.9 SINUSITIS ACUTE 10/12/2012 SHREYA HAYES APRNIDI A 461.9 SINUSITIS ACUTE 10/12/2012 EMMA ASH APRN R 461.9 SINUSITIS ACUTE 10/12/2012 SUREKHA BOX APRN 461.9 SINUSITIS ACUTE 10/12/2012 KEO MARQUEZ DOA K 461.9 SINUSITIS ACUTE 06/01/2013 SHREYA HAYES APRNIDI A 788.41 URINARY FREQUENCY 06/01/2013 DAVE OSBORN APRNNDA S 788.41 URINARY FREQUENCY 06/01/2013 ABIGAIL STEWART RYLEY A 788.41 URINARY FREQUENCY 06/01/2013 MU ASH APRNINA R 788.41 URINARY FREQUENCY 06/01/2013 SUREKHA BOX APRN 788.41 URINARY FREQUENCY 06/01/2013 KEO MARQUEZ DOA K 788.41 URINARY FREQUENCY 08/07/2013 YO OSBORN APRNA S 487.1 INFLUENZA 08/07/2013 DAVE OSBORN APRNNDA S 780.60 FEVER, UNSPECIFIED 08/07/2013 SHREYA HAYES APRNIDI A 487.1 INFLUENZA 08/07/2013 ABIGAIL STEWART RYLEY A 780.60 FEVER, UNSPECIFIED 08/07/2013 MU ASH APRNINA R 487.1 INFLUENZA 08/07/2013 MU ASH APRNINA R 780.60 FEVER, UNSPECIFIED 08/07/2013 SUREKHA BOX APRN 487.1 INFLUENZA 08/07/2013 SUREKHA BOX APRN 780.60 FEVER, UNSPECIFIED 08/07/2013 KEO MARQUEZ DOA K 487.1 INFLUENZA 08/07/2013 MARQUEZ DO, CATY K 780.60 FEVER, UNSPECIFIED 08/09/2013 SHREYA HAYES APRNIDI A 796.2 ELEVATED BLOOD PRESSURE READING WITHOUT DIAGNOSIS OF HYPERTENSION 08/09/2013 MU ASH APRNINA R 796.2 ELEVATED BLOOD PRESSURE READING WITHOUT DIAGNOSIS OF HYPERTENSION 08/09/2013 SUREKHA BOX APRN 796.2 ELEVATED BLOOD PRESSURE READING WITHOUT DIAGNOSIS OF HYPERTENSION 08/09/2013 KEO MARQUEZ DOA K 796.2 ELEVATED BLOOD PRESSURE READING WITHOUT DIAGNOSIS OF HYPERTENSION 12/15/2013 CHIKA VILLATORO, CHANTELL Linn Ot 558.9 NONINF GASTROENTERIT NEC 12/15/2013 CHIKA VILLATORO, CHANTELL Linn Ot 787.91 DIARRHEA 03/10/2015 Ot 623.8 03/10/2015 Ot 654.73 03/10/2015 Ot V76.12 03/10/2015 SRINI VILLATORO, KRISSY Mccartney Ot V76.12 03/10/2015 CARLOS BACON DO Ot 558.9 NONINF GASTROENTERIT NEC 03/10/2015 CARLOS BACON DO Ot 782.1 NONSPECIF SKIN ERUPT NEC 09/30/2015 Ot 623.8 09/30/2015 Ot 654.73 09/30/2015 Ot V76.12 09/30/2015 SRINI VILLATORO, KRISSY Mccartney Ot V76.12 10/08/2015 Ot 623.8 10/08/2015 Ot 654.73 10/08/2015 Ot V76.12 10/08/2015 SRINI VILLATORO, KRISSY Mccartney Ot V76.12 10/08/2015 NBA KHAN HOUSEKEEPING ASSOCIATE Ot Z12.31 10/08/2015 NBA KHAN HOUSEKEEPING ASSOCIATE Ot R92.8 10/21/2015 NBA KHAN HOUSEKEEPING ASSOCIATE Ot Z12.31 10/23/2015 NBA KHAN HOUSEKEEPING ASSOCIATE Ot R92.8 06/09/2018 KRISSY MILLIGAN MD Ot V76.12 OTH SCREEN MAMMO-MALIGN NEOPLASM OF JAMES 06/09/2018 NBA KHANP Ot Z12.31 ENCNTR SCREEN MAMMOGRAM FOR MALIGNANT NE 06/09/2018 NBA KHANP Ot R92.8 OTH ABN AND INCONCLUSIVE FINDINGS ON DX 06/15/2018 KRISSY MILLIGAN MD Ot V76.12 OTH SCREEN MAMMO-MALIGN NEOPLASM OF JAMES 06/15/2018 NBA KHAN HOUSEKEEPING ASSOCIATE Ot Z12.31 ENCNTR SCREEN MAMMOGRAM FOR MALIGNANT NE 06/15/2018 NBA KHAN HOUSEKEEPING ASSOCIATE Ot R92.8 OTH ABN AND INCONCLUSIVE FINDINGS ON DX 06/17/2018 NBA KHANP Ot Z12.31 ENCNTR SCREEN MAMMOGRAM FOR MALIGNANT NE 06/30/2018 NBA KHAN HOUSEKEEPING ASSOCIATE Ot Z12.31 ENCNTR SCREEN MAMMOGRAM FOR MALIGNANT NE Procedures Code Description [place] [address] UA W/ CULTURE IF INDICATED 06/01/2013 44621 INFLUENZA A & B (IN-HOUSE) 08/07/2013 64525 ROUTINE VENIPUNCTURE 01/15/2014 24127 TSH 01/15/2014 97633 CBC 01/15/2014 [id number] GFR CALC (RESULT ONLY) 01/15/2014 78767 CMP 01/15/2014 Results There is no data. Encounters ACCT No. Visit Date/Time Discharge Status Pt. Type Provider Facility Loc./Unit Complaint [id number] 01/25/2014 10:59:00 01/25/2014 23:59:59 CLS Outpatient CATY MARQUEZ DO [id number] 01/15/2014 09:49:00 01/15/2014 23:59:59 CLS Outpatient SUREKHA BOX APRN [id number] 10/06/2013 10:30:00 10/06/2013 23:59:59 CLS Outpatient EMMA ASH APRN [id number] 08/09/2013 10:38:00 08/09/2013 23:59:59 CLS Outpatient RYLEY HAYES APRN [id number] 08/07/2013 12:22:00 08/07/2013 23:59:59 CLS Outpatient DOMINIQUE OSBORN APRN [id number] 06/01/2013 10:01:00 06/01/2013 23:59:59 CLS Outpatient RYLEY HAYES APRN [id number] 10/12/2012 15:47:00 10/12/2012 23:59:59 CLS Outpatient [id number] 10/06/2018 14:55:00 10/06/2018 23:59:59 CLS Outpatient LANCE GRAFF APRN [facility] [id number] 06/15/2018 08:02:00 06/15/2018 23:59:59 CLS Outpatient NBA KHAN [facility] RAD SCREENING [id number] 10/08/2015 07:43:00 10/08/2015 23:59:59 CLS Outpatient NBA KHAN [facility] RAD ABNORMAL MAMMO [id number] 09/30/2015 11:14:00 09/30/2015 23:59:59 CLS Outpatient NBA KHAN [facility] RAD SCREENING [id number] 03/10/2015 11:59:00 03/10/2015 13:29:00 DIS Emergency CARLOS BACON DO [facility] ER RASH [id number] 12/15/2013 06:23:00 12/15/2013 07:20:00 DIS Emergency CHANTELL FARR MD [facility] ER DIARRHEA [id number] 03/20/2013 09:53:00 03/20/2013 23:59:59 CLS Outpatient KRISSY MILLIGAN MD [facility] RAD SCREENING [id number] 02/02/2013 11:36:00 02/02/2013 23:59:59 CLS Outpatient [id number] 02/01/2012 09:42:00 Document Registration [id number] 03/27/2011 16:54:00 Document Registration [id number] 08/11/2010 12:36:00 Document Registration [id number] 08/07/2010 08:32:00 Document Registration
[2019-02-02] MEDS ORDERED: NS IV 1000 ML 1,000 ML IV SCH (19:16)
[2019-02-02] MEDS ORDERED: NS IV 500 ML 500 ML IV ONE (19:16)
[2019-02-02 19:25] LABS: BASOPHILS # (AUTO) 0.1 10^3/uL (0.0-0.1); BASOPHILS % (AUTO) 1 % (0-10); EOSINOPHILS # (AUTO) 0.4 10^3/uL (0.0-0.3); EOSINOPHILS % (AUTO) 4 % (0-10); HEMATOCRIT 40 % (35-52); HEMOGLOBIN 13.6 G/DL (11.5-16.0); LYMPHOCYTES # (AUTO) 4.7 X 10^3 (1.0-4.0); LYMPHOCYTES % (AUTO) 38 % (12-44); MEAN CORPUSCULAR HEMOGLOBIN 29 PG (25-34); MEAN CORPUSCULAR HGB CONC 34 G/DL (32-36); MEAN CORPUSCULAR VOLUME 85 FL (80-99); MEAN PLATELET VOLUME 9.9 FL (7.4-10.4); MONOCYTES # (AUTO) 1.1 X 10^3 (0.0-1.0); MONOCYTES % (AUTO) 9 % (0-12); NEUTROPHILS # (AUTO) 6.1 X 10^3 (1.8-7.8); NEUTROPHILS % (AUTO) 49 % (42-75); PLATELET COUNT 307 10^3/uL (130-400); RED CELL DISTRIBUTION WIDTH 13.1 % (10.0-14.5); WHITE BLOOD COUNT 12.3 10^3/uL (4.3-11.0)
[2019-02-02 19:26] VITALS: BP_SYST 160; BP_SYST 171; BP_SYST 172; BP_DIAS 91; BP_DIAS 92; BP_DIAS 98
--- NOTE | 2019-02-02 19:28 | ED Cardiac General ---
History of Present Illness General Stated Complaint: HEART BEATING FAST Source: patient Exam Limitations: no limitations History of Present Illness Date Seen by Provider: Feb 02, 2019 Time Seen by Provider: 19:09 Initial Comments Patient presents to ER by private conveyance with her significant other and chief complaint that she was having some heart racing starting last night. When on through today. She has a history of anxiety uses Lexapro and Klonopin so she took 0.25 mg of Klonopin and it did give her some modest relief but then she heard a sad Jace reminded her mother who recently and came back.. She says she started acutely on Wednesday, 4 days ago and while she has not been and ketosis she wondered if that was causing her racing heart rate upwards of 130. She ate some carbs but that did not make her feel better and she does not have diabetes. She is trying to get established with Kathryn Knutson. She denies a history of dysrhythmia, heart disease, CHF. 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 She said she been urinating several times a day. She is not taking any stimulants or weight loss medications. Allergies and Home Medications Allergies Coded Allergies: amoxicillin (Verified Allergy, Mild, rash, 02/02/19) Home Medications Clonazepam 0.5 Mg Tablet, 1-2 EACH PO BID - TID PRN, (Reported) Clonazepam 0.5 Mg Tablet, 1 EACH PO BID Prescribed by: CHANTELL FARR on 03/27/11 1712 Venlafaxine HCl 75 Mg Cap.er.24h, 75 MG PO DAILY, (Reported) Patient Home Medication List Home Medication List Reviewed: Yes Review of Systems Review of Systems Constitutional: No chills, No diaphoresis EENTM: No Blurred Vision, No Double Vision Respiratory: Denies Cough, Denies Shortness of Air Cardiovascular: See HPI; Denies Chest Pain, Denies Edema, Denies Irregular Heart Rate; Palpitations Gastrointestinal: Denies Abdomen Distended, Denies Abdominal Pain Genitourinary: Denies Burning, Denies Discharge Musculoskeletal: No back pain, No joint pain Skin: No change in color, No pruritus, No rash Past Fptsgev-Fhrqot-Pffqod Hx Patient Social History Alcohol Use: Denies Use Smoking Status: Never a Smoker Recent Foreign Travel: No Contact w/Someone Who Travel: No Seasonal Allergies Seasonal Allergies: No Past Medical History Gallbladder Reproductive Disorders: Yes (PCOS) Female Reproductive Disorders: Ovarian Cyst, Polycystic Ovarian Dis Gall Bladder Disease Anxiety, Depression Physical Exam Vital Signs Vital Signs - First Documented 02/02/19 19:07 Temp 99.6 Pulse 112 Resp 20 B/P (MAP) 175/97 (123) Pulse Ox 100 O2 Delivery Room Air Capillary Refill : Height, Weight, BMI Height: 5'5" Weight: 290lbs. oz. 131.593641mg; BMI Method:Stated General Appearance: No Apparent Distress, Obese HEENT: PERRL/EOMI, TMs Normal, Moist Mucous Membranes, Pale Conjunctivae (L) Neck: Full Range of Motion, Normal Inspection Respiratory: Chest Non Tender, Lungs Clear, Normal Breath Sounds, No Accessory Muscle Use, No Respiratory Distress Cardiovascular: Regular Rate, Rhythm, No Edema, Normal Peripheral Pulses Gastrointestinal: Normal Bowel Sounds, No Organomegaly, Non Tender, Soft Neurologic/Psychiatric: Alert, Oriented x3, No Motor/Sensory Deficits Skin: Normal Color, Warm/Dry Progress/Results/Core Measures Results/Orders Lab Results Laboratory Tests Test 02/02/19 19:19 02/02/19 19:54 Range/Units White Blood Count 12.3 H 4.3-11.0 10^3/uL Red Blood Count 4.71 4.35-5.85 10^6/uL Hemoglobin 13.6 11.5-16.0 G/DL Hematocrit 40 35-52 % Mean Corpuscular Volume 85 80-99 FL Mean Corpuscular Hemoglobin 29 25-34 PG Mean Corpuscular Hemoglobin Concent 34 32-36 G/DL Red Cell Distribution Width 13.1 10.0-14.5 % Platelet Count 307 130-400 10^3/uL Mean Platelet Volume 9.9 7.4-10.4 FL Neutrophils (%) (Auto) 49 42-75 % Lymphocytes (%) (Auto) 38 12-44 % Monocytes (%) (Auto) 9 0-12 % Eosinophils (%) (Auto) 4 0-10 % Basophils (%) (Auto) 1 0-10 % Neutrophils # (Auto) 6.1 1.8-7.8 X 10^3 Lymphocytes # (Auto) 4.7 H 1.0-4.0 X 10^3 Monocytes # (Auto) 1.1 H 0.0-1.0 X 10^3 Eosinophils # (Auto) 0.4 H 0.0-0.3 10^3/uL Basophils # (Auto) 0.1 0.0-0.1 10^3/uL Sodium Level 141 135-145 MMOL/L Potassium Level 3.5 L 3.6-5.0 MMOL/L Chloride Level 106 98-107 MMOL/L Carbon Dioxide Level 22 21-32 MMOL/L Anion Gap 13 5-14 MMOL/L Blood Urea Nitrogen 22 H 7-18 MG/DL Creatinine 0.84 0.60-1.30 MG/DL Estimat Glomerular Filtration Rate > 60 BUN/Creatinine Ratio 26 Glucose Level 97 70-105 MG/DL Calcium Level 9.3 8.5-10.1 MG/DL Corrected Calcium 8.9 8.5-10.1 MG/DL Total Bilirubin 0.4 0.1-1.0 MG/DL Aspartate Amino Transf (AST/SGOT) 12 5-34 U/L Alanine Aminotransferase (ALT/SGPT) 16 0-55 U/L Alkaline Phosphatase 66 40-136 U/L Troponin I < 0.028 <0.028 NG/ML C-Reactive Protein High Sensitivity 0.87 H 0.00-0.50 MG/DL B-Type Natriuretic Peptide 22.9 <100.0 PG/ML Total Protein 7.7 6.4-8.2 GM/DL Albumin 4.5 3.2-4.5 GM/DL Urine Color YELLOW Urine Clarity CLEAR Urine pH 6 5-9 Urine Specific [place] 1.015 L 1.016-1.022 Urine Protein NEGATIVE NEGATIVE Urine Glucose (UA) NEGATIVE NEGATIVE Urine Ketones NEGATIVE NEGATIVE Urine Nitrite NEGATIVE NEGATIVE Urine Bilirubin NEGATIVE NEGATIVE Urine Urobilinogen NORMAL NORMAL MG/DL Urine Leukocyte Esterase NEGATIVE NEGATIVE Urine RBC (Auto) NEGATIVE NEGATIVE Urine RBC NONE /HPF Urine WBC NONE /HPF Urine Squamous Epithelial Cells 2-5 /HPF Urine Crystals NONE /LPF Urine Bacteria TRACE /HPF Urine Casts NONE /LPF Urine Mucus NEGATIVE /LPF Urine Culture Indicated NO Urine Opiates Screen NEGATIVE NEGATIVE Urine Oxycodone Screen NEGATIVE NEGATIVE Urine Methadone Screen NEGATIVE NEGATIVE Urine Propoxyphene Screen NEGATIVE NEGATIVE Urine Barbiturates Screen NEGATIVE NEGATIVE Ur Tricyclic Antidepressants Screen NEGATIVE NEGATIVE Urine Phencyclidine Screen NEGATIVE NEGATIVE Urine Amphetamines Screen NEGATIVE NEGATIVE Urine Methamphetamines Screen NEGATIVE NEGATIVE Urine Benzodiazepines Screen NEGATIVE NEGATIVE Urine Cocaine Screen NEGATIVE NEGATIVE Urine Cannabinoids Screen NEGATIVE NEGATIVE My Orders Orders - JANICE VERGARA Continuous Ekg Monitoring (02/02/19 19:09) Ekg Tracing (02/02/19 19:09) Cbc With Automated Diff (02/02/19 19:13) Comprehensive Metabolic Panel (02/02/19 19:13) Hs C Reactive Protein (02/02/19 19:13) Troponin I (02/02/19 19:13) BNP (02/02/19 19:13) Chest Pa/Lat (2 View) (02/02/19 19:13) Ua Culture If Indicated (02/02/19 19:13) Drug Screen Stat (Urine) (02/02/19 19:13) Ed Iv/Invasive Line Start (02/02/19 19:16) Ns Iv 500 Ml (Sodium Chloride 0.9%) (02/02/19 19:16) Ns Iv 1000 Ml (Sodium Chloride 0.9%) (02/02/19 19:16) Medications Given in ED Current Medications Medications Dose Ordered Sig/Dee Route Start Time Stop Time Status Last Admin Dose Admin Sodium Chloride 500 ml @ 0 mls/hr Q0M ONCE IV 02/02/19 19:16 02/02/19 19:22 DC 02/02/19 20:12 1,000 MLS/HR Vital Signs/I&O 02/02/19 02/02/19 19:07 19:26 Temp 99.6 Pulse 112 91 103 96 Resp 20 B/P (MAP) 175/97 (123) 171/91 (117) 160/92 (114) 172/98 (122) Pulse Ox 100 O2 Delivery Room Air Progress Progress Note #1: Time: 19:29 Progress Note EKG 20 mL/kg fluid bolus, orthostatics, labs urinalysis chest x-ray looking for dehydration versus infection. Patient has no focal symptoms. Appears to be sinus tachycardia on the monitor and on EKG. Progress Note #2: Time: 20:19 Progress Note Patient's heart rate is now in the mid 80s after the IV fluid bolus. She still pain free doing better. We'll let her go home with precautions against dehydration. No palpitations or changes on telemetry. Initial ECG Impression Date: Feb 02, 2019 Initial ECG Impression Time: 19:14 Initial ECG Rate: 102 Initial ECG Rhythm: S.Tach Initial ECG Intervals: QT (475) Initial ECG Impression: Normal, Nonspecific Changes Comment Sinus tachycardia without medically significant ST elevation or depression. Diagnostic Imaging Diagonstic Imaging: Xray Plain Films/CT/US/NM/MRI: chest (1v) Comments NAME: ANN CORREA MED REC#: [id number] PT STATUS: REG ER : 1970 PHYSICIAN: JANICE VERGARA MD ADMIT DATE: 02/02/19/ER Draft Date of Exam:02/02/19 CHEST PA/LAT (2 VIEW) INDICATION: Rapid heart rate. Patient has been dieting and exercising has lost 60 pounds. Patient has been under a lot of stress. COMPARISON STUDY: None. FINDINGS: Frontal and lateral views of the chest demonstrate the lungs to be clear. The heart, mediastinum and pulmonary vascularity are normal. IMPRESSION: Negative chest. Dictated on workstation # [id number] Dict: 02/02/191955 Trans: 02/02/192002 [facility] [id number] Interpreted by: AIDEN ARELLANO MD Electronically signed by: Reviewed: Reviewed by Me Departure Impression Primary Impression: Dehydration Additional Impressions: Anxiety Sinus tachycardia by electrocardiogram Disposition: HOME, SELF-CARE Condition: Stable Departure-Patient Inst. Decision time for Depature: 20:23 Referrals: CATY MARQUEZ DO (PCP) Primary Care Physician SUREKHA BOX (Family) Primary Care Physician SUREKHA KNUTSON DO Patient Instructions: Dehydration, Adult (DC) Add. Discharge Instructions: Drink plenty of fluids over the next week. Sports drinks are encouraged. Make plans to follow-up with primary care doctor as necessary. If you continue to have palpitations or chest pain shortness of breath then you should return to the ER. Work/School Note: Work Release Form Date Seen in the Emergency Department: Feb 02, 2019 Return to Work: Feb 03, 2019 Restrictions: No Restrictions JANICE VERGARA Feb 02, 2019 19:28
[2019-02-02 19:46] LABS: ALANINE AMINOTRANSFERASE 16 U/L (0-55); ALBUMIN 4.5 GM/DL (3.2-4.5); ALKALINE PHOSPHATASE 66 U/L (40-136); BILIRUBIN,TOTAL 0.4 MG/DL (0.1-1.0); BUN/CREATININE RATIO 26; CALCIUM 9.3 MG/DL (8.5-10.1); CARBON DIOXIDE 22 MMOL/L (21-32); CHLORIDE 106 MMOL/L (98-107); CREATININE SERUM 0.84 MG/DL (0.60-1.30); GFR ESTIMATED > 60; GLUCOSE 97 MG/DL (70-105); POTASSIUM 3.5 MMOL/L (3.6-5.0); SODIUM 141 MMOL/L (135-145); TOTAL PROTEIN 7.7 GM/DL (6.4-8.2)
--- NOTE | 2019-02-02 20:00 | NUR ---
urine collected via clean catch.
[2019-02-02 20:02] LABS: BILIRUBIN,URINE NEGATIVE (NEGATIVE); CLARITY,URINE CLEAR; COLOR,URINE YELLOW; GLUCOSE, URINE (UA) NEGATIVE (NEGATIVE); KETONES,URINE NEGATIVE (NEGATIVE); LEUKOCYTE ESTERASE ,URINE NEGATIVE (NEGATIVE); NITRITE,URINE NEGATIVE (NEGATIVE); PH,URINE 6 (5-9); PROTEIN,URINE NEGATIVE (NEGATIVE); UROBILINOGEN,URINE NORMAL (NORMAL)
--- NOTE | 2019-02-02 20:04 | Diagnostic Imaging Report ---
INDICATION: Rapid heart rate. Patient has been dieting and exercising has lost 60 pounds. Patient has been under a lot of stress. COMPARISON STUDY: None. FINDINGS: Frontal and lateral views of the chest demonstrate the lungs to be clear. The heart, mediastinum and pulmonary vascularity are normal. IMPRESSION: Negative chest. Dictated by: Dictated on workstation # [id number]
[2019-02-02 20:11] LABS: BACTERIA,URINE TRACE /HPF
[2019-02-02 20:15] LABS: AMPHETAMINE SCREEN, URINE NEGATIVE (NEGATIVE); BARBITURATE SCREEN URINE NEGATIVE (NEGATIVE); BENZODIAZEPINES SCREEN URINE NEGATIVE (NEGATIVE); CANNABINOID SCREEN, URINE NEGATIVE (NEGATIVE); COCAINE SCREEN URINE NEGATIVE (NEGATIVE); METHADONE STAT NEGATIVE (NEGATIVE); METHAMPHETAMINE SCREEN URINE S NEGATIVE (NEGATIVE); OPIATE SCREEN URINE NEGATIVE (NEGATIVE); OXYCODONE STAT NEGATIVE (NEGATIVE); PROPOXYPHENE STAT NEGATIVE (NEGATIVE); TRICYCLIC ANTIDEPRESSANTS SCRE NEGATIVE (NEGATIVE)
[2019-02-02 20:31] VITALS: BP 153/86
== END 2019-02-02 20:33 | disposition home or self-care (01) ==
LOC: EDUNIT# 19:05 → ER 19:07
DX: F41.9 Anxiety disorder, unspecified (principal); E86.0 Dehydration; R00.0 Tachycardia, unspecified; F32.9 Major depressive disorder, single episode, unspecified; Z88.1 Allergy status to other antibiotic agents
CPT/HCPCS: 36415; 71046; 80053; 80306; 81000; 83880; 84484; 85025; 86141; 93005; 96360

== ENCOUNTER 2019-02-03 11:58 | Emergency (ER) | payer BC ==
[~2019-02-03] VITALS: Ht 165.1 cm; Wt 106.6 kg
--- NOTE | 2019-02-03 12:38 | NUR ---
of dyspnea noted. someon applied tele shows st 102. lungs equal cta bilaterally.abd w/o pain with palpation. done selaz pt 1242. pt here with " and son" son is child and they are staying in the w/r. pt relates was in er here last noc c/o palpitations. dx dehydation ans says she got 2 bags of ivf. pt relates she went to work today and c/o palpatiations again. pt appears anxious and relates h/o same and is on klonopin and effexor. pt currently denies the palptiations currently denies abd pain and n/v/d. denies dyspnea and no acute sighns
--- NOTE | 2019-02-03 12:51 | NUR ---
ekg by me
[2019-02-03] MEDS ORDERED: LACTATED RINGERS 1,000 ML IV ONE (12:58)
--- NOTE | 2019-02-03 13:00 | NUR ---
labs to lab byme
[2019-02-03 13:26] LABS: ALANINE AMINOTRANSFERASE 14 U/L (0-55); ALBUMIN 4.3 GM/DL (3.2-4.5); ALKALINE PHOSPHATASE 59 U/L (40-136); BILIRUBIN,TOTAL 0.5 MG/DL (0.1-1.0); BUN/CREATININE RATIO 24; CARBON DIOXIDE 22 MMOL/L (21-32); CHLORIDE 108 MMOL/L (98-107); CREATININE SERUM 0.72 MG/DL (0.60-1.30); GFR ESTIMATED > 60; GLUCOSE 96 MG/DL (70-105); POTASSIUM 3.5 MMOL/L (3.6-5.0); SODIUM 142 MMOL/L (135-145); TOTAL PROTEIN 7.3 GM/DL (6.4-8.2)
--- NOTE | 2019-02-03 13:34 | ED General ---
General Stated Complaint: HEART PALPITATIONS Source of Information: Patient Exam Limitations: No Limitations History of Present Illness Date Seen by Provider: Feb 03, 2019 Time Seen by Provider: 12:46 Initial Comments Here with report of palpitations today while at work. She is apparently seen yesterday for the same and found to be dehydrated and given 2 L of fluid. She states that she felt way better after that. She tried to go back to work today which is in the heat and does require physical activity. Parents when she noted the palpitations and feeling weak again. Presented here for further evaluation. States that she is eating and drinking okay. She has recently been on the Keto diet and she is not sure that that is beneficial to her. Denies other concerns. Timing/Duration: 1 Hour, Changing Over Time Severity: Moderate Modifying Factors: improves with Rest; worse with Other (activity) Associated Systoms: No Chest Pain, No Cough, No Fever/Chills, No Nausea/Vomiting, No Shortness of Air, No Weakness Allergies and Home Medications Allergies Coded Allergies: amoxicillin (Verified Allergy, Mild, rash, 02/02/19) Home Medications Clonazepam 0.5 Mg Tablet, 1-2 EACH PO BID - TID PRN, (Reported) Clonazepam 0.5 Mg Tablet, 1 EACH PO BID Prescribed by: CHANTELL FARR on 03/27/11 1712 Venlafaxine HCl 75 Mg Cap.er.24h, 75 MG PO DAILY, (Reported) Patient Home Medication List Home Medication List Reviewed: Yes Review of Systems Review of Systems Constitutional: see HPI; No chills, No fever EENTM: no symptoms reported Respiratory: no symptoms reported Cardiovascular: see HPI; No chest pain; palpitations; No syncope Gastrointestinal: No abdominal pain, No nausea, No vomiting Genitourinary: no symptoms reported Musculoskeletal: no symptoms reported Psychiatric/Neurological: No Symptoms Reported Past S[place]qe-Kughcr-[place] Hx Past Med/Social Hx: Reviewed Nursing Past Med/Soc Hx Patient Social History Alcohol Use: Denies Use Recreational Drug Use: No Smoking Status: Current Everyday Smoker Type Used: Cigarettes 2nd Hand Smoke Exposure: No Recent Hopitalizations: No (GALLBLADDER, SHOULDER SURGER AND D% C) Immunizations Up To Date PED Vaccines UTD: Yes Seasonal Allergies Seasonal Allergies: No Past Medical History Surgeries: Yes Section, Gallbladder, Orthopedic Respiratory: No Cardiac: No Neurological: No Reproductive Disorders: Yes (PCOS) Female Reproductive Disorders: Ovarian Cyst, Polycystic Ovarian Dis Gastrointestinal: Yes (CHOLECYSTECTOMY IN 2003) Gall Bladder Disease Musculoskeletal: No Endocrine: No Cancer: No Psychosocial: Yes Anxiety, Depression Integumentary: No Blood Disorders: No Family Medical History Reviewed Nursing Family Hx No Pertinent Family Hx Physical Exam Vital Signs Vital Signs - First Documented 02/03/19 12:38 Temp 98.7 Pulse 96 Resp 20 B/P (MAP) 197/112 (140) Pulse Ox 97 O2 Delivery Room Air Capillary Refill : Height, Weight, BMI Height: 5'5.00" Weight: 235lbs. oz. 106.119921bj; BMI Method:Stated General Appearance: No Apparent Distress, WD/WN HEENT: PERRL/EOMI, Pharynx Normal Neck: Non Tender, Supple Respiratory: Lungs Clear, Normal Breath Sounds Cardiovascular: No Murmur, Tachycardia Gastrointestinal: Non Tender, Soft Back: Normal Inspection, No CVA Tenderness, No Vertebral Tenderness Extremity: Normal Range of Motion, Non Tender Neurologic/Psychiatric: Alert, Oriented x3 Skin: Normal Color, Warm/Dry Progress/Results/Core Measures Suspected Sepsis SIRS Temperature: Pulse: Respiratory Rate: Blood Pressure / Mean: Laboratory Tests 02/03/19 12:58: Creatinine 0.72, Total Bilirubin 0.5 Results/Orders Lab Results Laboratory Tests Test 02/03/19 12:58 Range/Units Sodium Level 142 135-145 MMOL/L Potassium Level 3.5 L 3.6-5.0 MMOL/L Chloride Level 108 H 98-107 MMOL/L Carbon Dioxide Level 22 21-32 MMOL/L Anion Gap 12 5-14 MMOL/L Blood Urea Nitrogen 17 7-18 MG/DL Creatinine 0.72 0.60-1.30 MG/DL Estimat Glomerular Filtration Rate > 60 BUN/Creatinine Ratio 24 Glucose Level 96 70-105 MG/DL Calcium Level 9.0 8.5-10.1 MG/DL Corrected Calcium 8.8 8.5-10.1 MG/DL Total Bilirubin 0.5 0.1-1.0 MG/DL Aspartate Amino Transf (AST/SGOT) 12 5-34 U/L Alanine Aminotransferase (ALT/SGPT) 14 0-55 U/L Alkaline Phosphatase 59 40-136 U/L Total Protein 7.3 6.4-8.2 GM/DL Albumin 4.3 3.2-4.5 GM/DL TSH [place] Testing 1.89 0.35-4.94 UIU/ML My Orders Orders - CHU MENDEZ MD Comprehensive Metabolic Panel (02/03/19 12:58) Thyroid Analyzer (02/03/19 12:58) Ed Iv/Invasive Line Start (02/03/19 12:58) Lactated Ringers (Lr 1000 Ml Iv Solution (02/03/19 12:58) Monitor-Rhythm Ecg Trace Only (02/03/19 12:58) Medications Given in ED Current Medications Medications Dose Ordered Sig/Dee Route Start Time Stop Time Status Last Admin Dose Admin Lactated Ringer's 1,000 ml @ 0 mls/hr Q0M ONCE IV 02/03/19 12:58 02/03/19 13:00 DC 02/03/19 13:05 0 MLS/HR Vital Signs/I&O 02/03/19 02/03/19 12:38 14:33 Temp 98.7 99.0 Pulse 96 88 Resp 20 16 B/P (MAP) 197/112 (140) 164/90 (114) Pulse Ox 97 97 O2 Delivery Room Air Room Air Capillary Refill : Progress Note : Progress Note Seen and evaluated. IV, labs, normal saline 1 L bolus and EKG ordered. We will check thyroid studies. Patient overall doing better on arrival here. Monitor patient. 1514: Heart rate now 85 and patient feeling much better. No acute findings on labs. Discharged home with return precautions. Patient verbalize understanding instructions and agreement with plan. ECG Initial ECG Impression Date: Feb 03, 2019 Initial ECG Impression Time: 12:46 Initial ECG Rate: 101 Initial ECG Rhythm: S.Tach Comment Sinus tachycardia with leftward axis. No ST elevation MT. Similar to previous done yesterday. Interpreted by me. Departure Impression Primary Impression: Palpitations Additional Impression: Dehydration Disposition: 01 HOME, SELF-CARE Condition: Improved Departure-Patient Inst. Decision time for Depature: 15:16 Referrals: CATY MARQUEZ DO (PCP) Primary Care Physician SUREKHA BOX (Family) Primary Care Physician Patient Instructions: Dehydration, Adult (DC), Palpitations Add. Discharge Instructions: Drinking adequate amount of fluids and eat a normal diet. You should stop the Keto diet but you may continue your calorie counting diet. Follow up with your doctor next week for recheck and further evaluation. Return for worse pain, fever, vomiting, weakness, breathing problems or other concerns as needed. CHU MENDEZ MD Feb 03, 2019 13:34
[2019-02-03 13:46] LABS: TSH (THYROID ANALYZER) 1.89 UIU/ML (0.35-4.94)
[2019-02-03 14:33] VITALS: BP 164/90
--- NOTE | 2019-02-03 14:34 | NUR ---
PT REMAINS ALERT GCS 15. NO LONGER APPEARS ANXIOUS. AND CHILD IN THE ROOM. PT DENIES CHEST PAIN AND PALPITATIONS. DENIES DYSPNEA AND NO ACUTE SIGHNS OF DYSPNEA NOTED. RELATES SHE HAD A H/A EARLIER NONE NOW. TELE SHOWS SR 89. DENIES NAUSEA AND NO V/D NOTED IN ER VISIT THUS FAR. LITER BOLUS COMPLETED.
[2019-02-03 15:49] VITALS: BP 159/102
--- NOTE | 2019-02-03 15:49 | NUR ---
d/c instructions to pt. told to read all papers. no scripts given. pt left ambulatory with and a child. pt knows f/u. i went over the handtyped by information on the chart. iv d/cd by me prior to d/c.
--- NOTE | 2019-02-03 15:49 | NUR ---
tele showed sr 84 at d/c and pt had no palpitations or arrhymias in er visit.
== END 2019-02-03 15:49 | disposition home or self-care (01) ==
LOC: EDUNIT# 11:58 → ER 11:59
DX: R00.2 Palpitations (principal); E86.0 Dehydration; F41.9 Anxiety disorder, unspecified; F32.9 Major depressive disorder, single episode, unspecified; F17.210 Nicotine dependence, cigarettes, uncomplicated; Z88.1 Allergy status to other antibiotic agents; Z90.49 Acquired absence of other specified parts of digestive tract
CPT/HCPCS: 36415; 80053; 84443; 93005; 93041; 96360

== ENCOUNTER → 2019-03-20 | Outpatient (CLI) | payer BC ==
--- NOTE | 2019-03-20 14:44 | Diagnostic Imaging Report ---
PROCEDURE: US Thyroid. TECHNIQUE: Multiple real-time grayscale images were obtained of the thyroid in various projections. INDICATION: Thyromegaly. FINDINGS: Right lobe of thyroid measures 5.5 x 2 x 2 cm. Left lobe measures 4.8 x 1.8 x 2.1 cm. There is a 7 mm hypoechoic nodule on the left. There are no other discrete solid or cystic masses. The isthmus measures 4 mm. IMPRESSION: Small benign-appearing hypoechoic thyroid nodule on the left likely adenoma otherwise unremarkable thyroid ultrasound Dictated by: Dictated on workstation # [id number]
== END ==
LOC: RAD 12:52
PROVIDERS: ATTEND Nurse Practitioner Family
DX: E01.0 Iodine-deficiency related diffuse (endemic) goiter (principal)
CPT/HCPCS: 76536

== ENCOUNTER → 2019-08-29 | Outpatient (CLI) | payer BC ==
--- NOTE | 2019-08-29 13:18 | Diagnostic Imaging Report ---
INDICATION: Routine screening. Comparison is made with prior mammogram 06/15/2018 and 09/30/2015. 2-D and 3-D bilateral screening mammography was performed with CAD. Both breasts remain heterogeneously dense, limiting the sensitivity of mammography. The parenchyma pattern is stable. No mass or malignant appearing microcalcifications are seen. Axillae are unremarkable. IMPRESSION: BI-RADS Category 1 No mammographic features suspicious for malignancy identified. ACR BI-RADS Category 1: Negative. Result letter will be mailed to the patient. Note: At least 10% of breast cancer is not imaged by mammography. Dictated by: Dictated on workstation # [id number]
== END ==
LOC: RAD 10:57
PROVIDERS: ATTEND Nurse Practitioner
DX: Z12.31 Encounter for screening mammogram for malignant neoplasm of breast (principal)
CPT/HCPCS: 77067

== ENCOUNTER → 2019-09-25 | Outpatient (CLI) | payer BC | LOC: CARD 09:07 | PROVIDERS: ATTEND Nurse Practitioner Family | DX: I51.7 Cardiomegaly (principal); R01.2 Other cardiac sounds | CPT/HCPCS: 93306 ==

== ENCOUNTER 2020-06-14 12:38 | Emergency (ER) | payer BC ==
[~2020-06-14] VITALS: Ht 177 cm; Wt 90.0 kg
--- NOTE | 2020-06-14 12:57 | ED EENT ---
History of Present Illness General Stated Complaint: SORE THROAT Source: patient Exam Limitations: no limitations History of Present Illness Date Seen by Provider: Jun 14, 2020 Time Seen by Provider: 12:55 Initial Comments Patient has had a sore throat for a little over a week. She tested positive for strep at Dr. Knutson's office and was given a shot of penicillin. That failed to improve her symptoms so she went back a few days later and had a prescription for amoxicillin sent in. She presents today with sensation of something stuck in her throat just behind her tongue. She feels as though it is a little swollen though she reports she is having no troubles swallowing. No fevers no chills no shortness of breath body aches diarrhea or cough. Timing/Duration: last week Severity: moderate Location: throat Prearrival Treatment: no prearrival treatment Associated Symptoms: sore throat Allergies and Home Medications Allergies Coded Allergies: amoxicillin (Verified Allergy, Mild, rash, 02/02/19) Home Medications Clonazepam 0.5 Mg Tablet, 1-2 EACH PO BID - TID PRN, (Reported) Clonazepam 0.5 Mg Tablet, 1 EACH PO BID Prescribed by: CHANTELL FARR on 03/27/11 1712 Venlafaxine HCl 75 Mg Cap.er.24h, 75 MG PO DAILY, (Reported) Patient Home Medication List Home Medication List Reviewed: Yes Review of Systems Review of Systems Constitutional: see HPI Eyes: No Symptoms Reported Ears: No Symptoms Reported Nose: no symptoms reported Mouth: no symptoms reported Throat: see HPI, pain Respiratory: no symptoms reported Cardiovascular: no symptoms reported Musculoskeletal: no symptoms reported Skin: no symptoms reported Neurological: No Symptoms Reported Hematologic/Lymphatic: No Symptoms Reported Immunological/Allergic: no symptoms reported Past Arpwpct-Zefcpt-Nmevrp Hx Patient Social History Type Used: Cigarettes 2nd Hand Smoke Exposure: No Recent Foreign Travel: No Contact w/Someone Who Travel: No Recent Hopitalizations: No (GALLBLADDER, SHOULDER SURGER AND D% C) Immunizations Up To Date PED Vaccines UTD: Yes Seasonal Allergies Seasonal Allergies: No Past Medical History Surgeries: Yes Section, Gallbladder, Orthopedic Respiratory: No Cardiac: No Neurological: No Reproductive Disorders: Yes (PCOS) Female Reproductive Disorders: Ovarian Cyst, Polycystic Ovarian Dis Gastrointestinal: Yes (CHOLECYSTECTOMY IN 2003) Gall Bladder Disease Musculoskeletal: No Endocrine: No Cancer: No Psychosocial: Yes Anxiety, Depression Integumentary: No Blood Disorders: No Family Medical History No Pertinent Family Hx Physical Exam Vital Signs Vital Signs - First Documented 06/14/20 13:02 Temp 36.9 Pulse 78 Resp 20 B/P (MAP) 180/97 (124) Pulse Ox 100 O2 Delivery Room Air Height, Weight, BMI Height: 5'5.00" Weight: 235lbs. oz. 106.560989ar; BMI Method:Stated General Appearance: WD/WN, no apparent distress Eyes: bilateral eye normal inspection, bilateral eye PERRL, bilateral eye EOMI Ears: bilateral ear auricle normal, bilateral ear canal normal, bilateral ear TM normal Mouth/Throat: normal mouth inspection, pharynx normal, other (No uvular swelling or uvular deviation no tonsillar exudate or enlargement. Though she states she feels like her pain is a bit deeper than this. Will obtain CT scan of the neck.) Neck: non-tender, full range of motion Respiratory: no respiratory distress, no accessory muscle use Neurologic/Psychiatric: alert, normal mood/affect, oriented x 3 Skin: normal color, warm/dry Progress/Results/Core Measures Results/Orders My Orders Orders - MICHELLE TAYLOR APRN Ct Neck (Soft Tissue) Wo (06/14/20 12:54) Vital Signs/I&O 06/14/20 13:02 Temp 36.9 Pulse 78 Resp 20 B/P (MAP) 180/97 (124) Pulse Ox 100 O2 Delivery Room Air Departure Impression Primary Impression: Pharyngitis Disposition: 01 HOME, SELF-CARE Condition: Stable Departure-Patient Inst. Decision time for Depature: 13:57 Referrals: SUREKHA KNUTSON DO (PCP) Primary Care Physician TRUE KNUTSON DNP (Family) Primary Care Physician Patient Instructions: Sore Throat in Adults Add. Discharge Instructions: 1. Return to ER for any concerns. Follow-up with your doctor next week. Scripts Prednisone (Prednisone) 20 Mg Tab 40 MG PO DAILY, #6 TAB 0 Refills Prov: MICHELLE TAYLOR APRN 06/14/20 MICHELLE TAYLOR APRN Jun 14, 2020 12:57
--- NOTE | 2020-06-14 13:49 | Diagnostic Imaging Report ---
PROCEDURE: CT neck soft tissue without contrast. TECHNIQUE: Multiple contiguous axial images were obtained through the neck without the use of intravenous contrast. Auto Exposure Controls were utilized during the CT exam to meet ALARA standards for radiation dose reduction. INDICATION: Neck pain. Strep throat. Foreign body sensation. COMPARISON: None. FINDINGS: The pharynx and larynx are widely patent with no suspicious mass identified. No fluid collections are seen in the neck. No radiopaque foreign bodies. No cervical lymphadenopathy. The floor of the mouth, tongue base and epiglottis are grossly unremarkable. The thyroid and major salivary glands are negative. Lung apices are clear. Osseous structures are intact. The visualized paranasal sinuses and mastoids are clear. IMPRESSION: No acute CT findings in the neck on this noncontrast exam. No mass or fluid collection is identified. No radiopaque foreign bodies. No lymphadenopathy. Dictated by: Dictated on workstation # [id number]
[2020-06-14] MEDS ORDERED: PRD20T PO (13:58)
[2020-06-14 14:03] VITALS: BP 180/97
== END 2020-06-14 14:03 | disposition home or self-care (01) ==
LOC: EDUNIT# 12:38 → ER 12:39
DX: J02.9 Acute pharyngitis, unspecified (principal); F41.9 Anxiety disorder, unspecified; F32.9 Major depressive disorder, single episode, unspecified; Z88.1 Allergy status to other antibiotic agents
CPT/HCPCS: 70490

== ENCOUNTER → 2020-08-14 | Outpatient (CLI) | payer BC ==
[~2020-08-14] MED LIST changes: +PRD20T PO
--- NOTE | 2020-08-14 09:45 | Diagnostic Imaging Report ---
PROCEDURE: US Thyroid. TECHNIQUE: Multiple real-time grayscale images were obtained of the thyroid in various projections. INDICATION: Thyroid nodule. COMPARISON: Thyroid ultrasound of 03/20/2019 FINDINGS: Right thyroid lobe: The right thyroid lobe measures 4.8 x 2.1 x 1.8 cm. It is homogeneous in appearance and has no nodule. Isthmus: The thyroid isthmus measures 0.8 cm and is without nodule. Left thyroid lobe: The left thyroid lobe measures 5.3 x 2.1 x 2.2 cm. A solitary hypoechoic solid nodule in the superior aspect is wider than tall measuring 0.8 x 0.8 x 0.4 cm. It has circumscribed margins and no associated echogenic foci. This is unchanged in appearance since prior examination where previously measured 0.7 x 0.6 x 0.5 cm. IMPRESSION: 1. Stable solitary subcentimeter left thyroid nodule. Based on current TI-RADS Guidelines, this does not require dedicated follow-up given small size and lack of suspicious features. ACR TI-RADS: TR3 . TI-RADS Recommendations:TR3 - Mildly Suspicious. FNA if > 2.5 cm. Follow if > 1.5 cm at 1, 3, 5 years. Dictated by: Dictated on workstation # [id number]
== END ==
LOC: RAD 08:00
PROVIDERS: ATTEND Nurse Practitioner Family
DX: E04.1 Nontoxic single thyroid nodule (principal)
CPT/HCPCS: 76536

== ENCOUNTER → 2020-09-18 | Outpatient (CLI) | payer BC ==
--- NOTE | 2020-09-18 10:14 | Diagnostic Imaging Report ---
INDICATION: Routine screening. COMPARISON: 11/13/2019 and 06/15/2018. TECHNIQUE: 2D and 3D bilateral screening mammography was performed with CAD. FINDINGS: Scattered fibroglandular densities are identified bilaterally. The parenchymal pattern is stable. No mass or malignant appearing microcalcifications are seen. The axillae are unremarkable. IMPRESSION: No mammographic features suspicious for malignancy are identified. ACR BI-RADS Category 1: Negative. Result letter will be mailed to the patient. Note: At least 10% of breast cancer is not imaged by mammography. Dictated by: Dictated on workstation # [id number]
== END ==
LOC: RAD 08:00
PROVIDERS: ATTEND Surgery
DX: Z12.31 Encounter for screening mammogram for malignant neoplasm of breast (principal)
CPT/HCPCS: 77063; 77067

== ENCOUNTER → 2021-04-23 | Outpatient (CLI) | payer BC ==
--- NOTE | 2021-04-23 14:28 | Diagnostic Imaging Report ---
PROCEDURE: US Thyroid. TECHNIQUE: Multiple Real-time grayscale images were obtained of the thyroid in various projections. INDICATION: Right-sided thyroid nodule, followup. COMPARISON: Correlation is made with the prior thyroid ultrasound from 08/14/2020. FINDINGS: The right lobe of the thyroid measures 5.0 x 2.1 x 1.9 cm and the left lobe measures 5.4 x 2.0 x 2.1 cm. The isthmus is 8 mm in thickness. A circumscribed hypoechoic nodule in the upper pole of the left lobe of the thyroid is stable at 8 mm x 6 mm x 8 mm. The right lobe is unremarkable. No other thyroid masses are seen. IMPRESSION: Stable subcentimeter left lobe thyroid nodule when compared to the examination from 08/14/2020. Dictated by: Dictated on workstation # [id number]
== END ==
LOC: RAD 12:00
PROVIDERS: ATTEND Nurse Practitioner Family
DX: E04.1 Nontoxic single thyroid nodule (principal)
CPT/HCPCS: 76536

== ENCOUNTER → 2022-11-17 | Outpatient (CLI) | payer BC | LOC: CARD 08:33 | PROVIDERS: ATTEND Internal Medicine Cardiovascular Disease | DX: I27.20 Pulmonary hypertension, unspecified (principal) | CPT/HCPCS: 93306 ==